=== PATIENT | male | born 1955 | race Caucasian/White ===

== ENCOUNTER 2022-05-04 11:25 | Outpatient (CLI) | payer MEDICARE ==
[2022-05-04 12:50] LABS: #Eosinphils 0.1 10x3/uL (0.0-0.5); #Monocytes 0.8 10x3/uL (0.0-1.1); #Neutrophils 7.1 10x3/uL (1.5-8.4); %Basophils 0.4 % (0.0-2.0); %Eosinophils 0.9 % (0.0-6.0); %Lymphocytes 22.8 % (18.0-47.0); %Monocytes 7.8 % (0.0-10.0); %Neutrophils 67.4 % (40.0-75.0); Hemoglobin 15.8 g/dL (13.5-17.5); Mean Corpuscular HGB CONC 33.1 g/dL (32.0-36.0); Mean Corpuscular Hemoglobin 31.9 pg (27.0-33.0); Mean Corpuscular Volume 96.4 fl (81.2-95.1); Mean Platelet Volume 11.8 fl (7.4-10.4); Platelet Count 218 10x3/uL (150-450); RBC Distribution Width 14.2 % (11.5-14.5); Red Blood Cell (RBC) Count 4.95 10x6/uL (4.32-5.72); White Blood Cell (WBC) Count 10.6 10x3/uL (3.5-10.5)
[2022-05-04 12:57] LABS: INR-International Normal Ratio 0.9; Prothrombin Time 10.3 sec (9.5-12.1)
[2022-05-04 13:00] LABS: Anion Gap 14 mmol/L (10-20); BUN (Urea Nitrogen) 17 mg/dL (8.4-25.7); Calc. Creatinine Clearance 0 mL/min (70-130); Calcium 9.2 mg/dL (7.8-10.44); Carbon Dioxide 26 mmol/L (23-31); Chloride 105 mmol/L (98-107); Estimated GFR 85; Glucose 111 mg/dL (80-115); Potassium 4.2 mmol/L (3.5-5.1); Sodium 141 mmol/L (136-145)
== END 2022-05-04 11:26 | disposition home or self-care (01) ==
LOC: LABBT 11:25
PROVIDERS: ATTEND Orthopaedic Surgery
DX: Z01.818 Encounter for other preprocedural examination (principal); M17.31 Unilateral post-traumatic osteoarthritis, right knee; Z20.822 Contact with and (suspected) exposure to COVID-19
CPT/HCPCS: 80048; 85025; 85610; 87081; 87811; 93005; 93010

== ENCOUNTER 2022-05-09 06:33 | Observation (INO) | payer MEDICARE ==
[2022-05-09] MEDS ORDERED: Tranexamic Acid 1,000 MG/10 ML VIAL ONE (06:55)
[2022-05-09] MEDS ORDERED: Sodium Chloride 0.9% 100 ML ONE (06:55)
[2022-05-09] MEDS ORDERED: VANCOMYCIN 2 GRAM/500 ML BAG 2 GM in Premix Bag 1 BAG IVPB SCH (07:00)
[2022-05-09] MEDS ORDERED: Midazolam HCl 2 mg/2 ml Vial ONE (07:47)
[2022-05-09] MEDS ORDERED: Lidocaine 1% MPF 2 ML VIAL ONE ×2 (07:47→09:24)
[2022-05-09] MEDS ORDERED: Fentanyl 100 MCG/2 ML VIAL ONE (07:47)
[2022-05-09] MEDS ORDERED: Fentanyl 100 MCG/2 ML VIAL IV PRN (08:16)
[2022-05-09] MEDS ORDERED: traMADol HCl 50 MG TAB PO PRN ×2 (08:30)
[2022-05-09] MEDS ORDERED: Promethazine HCl 25 MG/ML VIAL IM PRN ×3 (08:30→11:01)
[2022-05-09] MEDS ORDERED: Zolpidem Tartrate 5 MG TAB PO PRN ×2 (08:30→08:50)
[2022-05-09] MEDS ORDERED: Ropivacaine 0.2% 550 ML 550 ML NERVE BLCK SCH (08:30)
[2022-05-09] MEDS ORDERED: HYDROcodone/Acetaminophen 10/325 mg Tablet PO PRN (08:30)
[2022-05-09] MEDS ORDERED: Ondansetron PF 4 MG/2 ML Vial IVP PRN ×2 (08:30→08:50)
[2022-05-09] MEDS ORDERED: diphenhydrAMINE 25 MG CAP PO PRN (08:50)
[2022-05-09] MEDS ORDERED: Acetaminophen 325 MG TAB PO PRN (08:50)
[2022-05-09] MEDS ORDERED: guaiFENesin ER 600 MG TAB PO PRN (08:51)
[2022-05-09] MEDS ORDERED: Non-Formulary Item 1 EACH (Multivit-Min/Fa/Lycopen/Lutein [Centrum Silver Men Tablet] 1 E PO SCH (09:00)
[2022-05-09] MEDS ORDERED: Bupivacaine PF 0.5% 30 ML VIAL ONE (09:00)
[2022-05-09] MEDS ORDERED: fentaNYL Citrate/PF 100 MCG/2 ML SYRINGE ONE (09:10)
[2022-05-09] MEDS ORDERED: Ondansetron PF 4 MG/2 ML Vial ONE (09:24)
[2022-05-09] MEDS ORDERED: Dexamethasone 20 MG/5 ML VIAL ONE (09:24)
[2022-05-09] MEDS ORDERED: Ropivacaine 0.5% HCl/PF (150 MG/30 ML VIAL) ONE (09:24)
[2022-05-09] MEDS ORDERED: PROPOFOL 200 MG/20 ML VIAL ONE (09:24)
[2022-05-09] MEDS ORDERED: ePHEDrine 50 MG/ML VIAL ONE (09:24)
[2022-05-09] MEDS ORDERED: Promethazine HCl 25 MG/ML VIAL IVPB PRN (11:01)
[2022-05-09] MEDS ORDERED: Ondansetron HCl/PF 4 MG/2 ML Vial IVP PRN (11:01)
[2022-05-09] MEDS: Aspirin 81 mg Enteric Coated Tablet PO SCH ×2 (12:33→20:58)
[2022-05-09] MEDS: Cyanocobalamin (Vitamin B-12) 1,000 MCG TAB PO SCH (12:33)
[2022-05-09] MEDS: NIFEdipine XL 30 MG TAB PO SCH (12:33)
[2022-05-09] MEDS: Sodium Chloride 0.9% 1,000 ML IV SCH ×2 (12:34→18:34)
[2022-05-09 12:37] VITALS: BMI 36.1
[2022-05-09] MEDS: Ketorolac Tromethamine 30 MG/ML VIAL IVP SCH ×3 (12:57→23:39)
[2022-05-09] MEDS: CEFAZOLIN 2 GM in Sodium Chloride 0.9% 100 ML IVPB SCH ×2 (13:01→23:39)
[2022-05-09] MEDS: HYDROcodone/Acetaminophen 10/325 mg Tablet PO PRN (20:58)
[2022-05-09] MEDS ORDERED: Carvedilol 25 MG TAB PO SCH (21:00)
[2022-05-09] MEDS ORDERED: Atorvastatin Calcium 20 MG TAB PO SCH (21:00)
[2022-05-09] MEDS ORDERED: Tamsulosin HCl 0.4 MG CAP PO SCH (22:00)
[2022-05-10] MEDS: HYDROcodone/Acetaminophen 10/325 mg Tablet PO PRN ×2 (05:00→08:41)
[2022-05-10] MEDS: Ketorolac Tromethamine 30 MG/ML VIAL IVP SCH (05:00)
[2022-05-10] MEDS: Sodium Chloride 0.9% 1,000 ML IV SCH (05:03)
[2022-05-10 05:26] LABS: Mean Corpuscular HGB CONC 33.2 g/dL (32.0-36.0); Mean Platelet Volume 9.5 fL (7.4-10.4); Platelet Count 157 thou/uL (130-400); RBC Distribution Width 12.7 % (11.5-14.5); Red Blood Cell (RBC) Count 4.11 mill/uL (4.70-6.10); White Blood Cell (WBC) Count 19.8 thou/uL (4.8-10.8)
[2022-05-10 06:08] VITALS: TEMP 97.7
[2022-05-10] MEDS ORDERED: Ferrous Gluconate 324 MG TAB PO SCH (08:00)
[2022-05-10 08:17] VITALS: BP 145/78
[2022-05-10] MEDS: Aspirin 81 mg Enteric Coated Tablet PO SCH (08:29)
[2022-05-10] MEDS: NIFEdipine XL 30 MG TAB PO SCH (08:30)
[2022-05-10] MEDS: Cyanocobalamin (Vitamin B-12) 1,000 MCG TAB PO SCH (08:30)
[2022-05-10] MEDS ORDERED: Senokot S 8.6-50 MG TAB PO SCH (09:00)
[2022-05-10] MEDS ORDERED: Multivitamin W/ Minerals 1 TAB PO SCH (09:00)
[2022-05-10] MEDS ORDERED: Tamsulosin HCl 0.4 MG CAP PO SCH (21:00)
== END 2022-05-10 09:55 | disposition home or self-care (01) ==
LOC: SDC 06:33 → SJJU 12:18
PROVIDERS: ADMIT Orthopaedic Surgery; ATTEND Orthopaedic Surgery
PROC: 0SRC0J9 Replacement of Right Knee Joint with Synthetic Substitute, Cemented, Open Approach (ICD-10-PCS; principal; 2022-05-09)
PROC: 8E0YXBZ Computer Assisted Procedure of Lower Extremity (ICD-10-PCS; 2022-05-09)
DX: M17.31 Unilateral post-traumatic osteoarthritis, right knee (principal); I10 Essential (primary) hypertension; E78.5 Hyperlipidemia, unspecified; N40.1 Benign prostatic hyperplasia with lower urinary tract symptoms; E66.9 Obesity, unspecified; Z68.38 Body mass index [BMI] 38.0-38.9, adult; Z85.118 Personal history of other malignant neoplasm of bronchus and lung; Z85.528 Personal history of other malignant neoplasm of kidney; Z87.891 Personal history of nicotine dependence; Z92.21 Personal history of antineoplastic chemotherapy; Z79.899 Other long term (current) drug therapy; Z91.041 Radiographic dye allergy status; Z90.2 Acquired absence of lung [part of]; Z90.5 Acquired absence of kidney
CPT/HCPCS: 20985; 27447; 73560; 85027; 97110 ×2; 97116; 97530; A4306; C1713; C1776; J3370; 36415; J0690; J1100; J1885; J2250; J2405; J2704; J2795; J3010; J3490; S0020

== ENCOUNTER 2023-07-05 12:49 | Outpatient (CLI) | payer MEDICARE ==
[2023-07-05 16:07] LABS: Anion Gap 16 mmol/L (10-20); BUN (Urea Nitrogen) 23 mg/dL (8.4-25.7); Calc. Creatinine Clearance 0 mL/min (70-130); Calcium 9.4 mg/dL (7.8-10.44); Carbon Dioxide 24 mmol/L (23-31); Chloride 104 mmol/L (98-107); Estimated GFR 92; Glucose 85 mg/dL (80-115); Potassium 4.5 mmol/L (3.5-5.1); Sodium 139 mmol/L (136-145)
[2023-07-05 16:18] LABS: #Eosinphils 0.1 10x3/uL (0.0-0.5); #Monocytes 0.9 10x3/uL (0.0-1.1); #Neutrophils 6.3 10x3/uL (1.5-8.4); %Basophils 0.2 % (0.0-2.0); %Eosinophils 1.4 % (0.0-6.0); %Lymphocytes 25.2 % (18.0-47.0); %Monocytes 9.4 % (0.0-10.0); %Neutrophils 63.1 % (40.0-75.0); Hematocrit 46.6 % (38.8-50.0); Hemoglobin 15.7 g/dL (13.5-17.5); Mean Corpuscular HGB CONC 33.7 g/dL (32.0-36.0); Mean Corpuscular Hemoglobin 32.2 pg (27.0-33.0); Mean Corpuscular Volume 95.5 fl (81.2-95.1); Mean Platelet Volume 12.2 fl (7.4-10.4); Platelet Count 186 10x3/uL (150-450); RBC Distribution Width 14.6 % (11.5-14.5); Red Blood Cell (RBC) Count 4.88 10x6/uL (4.32-5.72); White Blood Cell (WBC) Count 9.9 10x3/uL (3.5-10.5)
[2023-07-05 17:04] LABS: INR-International Normal Ratio 0.9; Prothrombin Time 10.2 sec (9.5-12.1)
== END 2023-07-05 12:50 | disposition home or self-care (01) ==
LOC: LABBT 12:49
PROVIDERS: ATTEND Orthopaedic Surgery
DX: Z01.818 Encounter for other preprocedural examination (principal); M17.12 Unilateral primary osteoarthritis, left knee
CPT/HCPCS: 80048; 85025; 85610; 87081; 93005; 93010

== ENCOUNTER 2023-07-10 05:54 | Observation (INO) | payer MEDICARE ==
[2023-07-05 13:57] VITALS: BMI 38.0
[2023-07-10] MEDS ORDERED: Tranexamic Acid 1,000 MG/10 ML VIAL ONE (06:03)
[2023-07-10] MEDS ORDERED: Sodium Chloride 0.9% 100 ML ONE ×2 (06:04→07:03)
[2023-07-10] MEDS ORDERED: Vancomycin (BATCH) 2 GM in Premix 1 BAG IVPB SCH (06:15)
[2023-07-10] MEDS ORDERED: Bupivacaine PF 0.5% 30 ML VIAL ONE ×2 (06:20→06:39)
[2023-07-10] MEDS ORDERED: EPINEPHrine 1 MG/ML VIAL ONE (06:38)
[2023-07-10] MEDS ORDERED: Midazolam HCl 2 mg/2 ml Vial ONE (06:39)
[2023-07-10] MEDS ORDERED: fentaNYL 50 mcg/mL 1 mL Vial ONE (06:39)
[2023-07-10] MEDS ORDERED: CEFAZOLIN 2 GM VIAL ONE (07:03)
[2023-07-10] MEDS ORDERED: fentaNYL PF 100 MCG/2 ML SYRINGE ONE ×3 (07:07→09:35)
[2023-07-10] MEDS ORDERED: PROPOFOL 20 ML ONE ×2 (07:07→07:33)
[2023-07-10] MEDS ORDERED: Lidocaine 1% PF 5 ML VIAL ONE ×2 (07:07→07:15)
[2023-07-10] MEDS ORDERED: Dexamethasone 20 MG/5 ML VIAL ONE ×2 (07:07→07:15)
[2023-07-10] MEDS ORDERED: ePHEDrine Sulfate 50 MG/10 ML VIAL ONE ×2 (07:07→07:15)
[2023-07-10] MEDS ORDERED: Ondansetron PF 4 MG/2 ML Vial ONE ×2 (07:07→07:15)
[2023-07-10] MEDS ORDERED: PHENYLEPHRINE-NS 100 MCG/ML 10 ML SYRINGE ONE (07:07)
[2023-07-10] MEDS ORDERED: PROPOFOL 200 MG/20 ML VIAL ONE (07:15)
[2023-07-10] MEDS ORDERED: diphenhydrAMINE 25 MG CAP PO PRN (07:16)
[2023-07-10] MEDS ORDERED: Promethazine HCl 25 MG/ML VIAL IM PRN (07:16)
[2023-07-10] MEDS ORDERED: HYDROcodone/Acetaminophen 10/325 mg Tablet PO PRN (07:16)
[2023-07-10] MEDS ORDERED: Ondansetron PF 4 MG/2 ML Vial IVP PRN (07:16)
[2023-07-10] MEDS ORDERED: fentaNYL 50 mcg/mL 1 mL Vial SLOW IVP PRN ×2 (07:16)
[2023-07-10] MEDS ORDERED: Acetaminophen 325 MG TAB PO PRN (07:16)
[2023-07-10] MEDS ORDERED: Zolpidem Tartrate 5 MG TAB PO PRN (07:16)
[2023-07-10] MEDS ORDERED: guaiFENesin ER 600 MG TAB PO PRN (07:17)
[2023-07-10] MEDS ORDERED: Ropivacaine 0.2% 550 ML 550 ML NERVE BLCK SCH (07:45)
[2023-07-10] MEDS ORDERED: traMADol HCl 50 MG TAB PO PRN ×2 (07:45)
[2023-07-10] MEDS ORDERED: Multivitamin W/ Minerals 1 TAB PO SCH (09:00)
[2023-07-10] MEDS ORDERED: Aspirin 81 mg Enteric Coated Tablet PO SCH (09:00)
[2023-07-10] MEDS ORDERED: HYDROmorphone 0.5 MG/0.5 ML SYRINGE ONE ×2 (09:12→09:35)
[2023-07-10] MEDS ORDERED: hydrALAZINE 20 MG/ML VIAL ONE (09:34)
[2023-07-10] MEDS ORDERED: Non-Formulary Medication 1 EACH PO PRN (09:48)
[2023-07-10] MEDS ORDERED: Promethazine HCl 25 MG/ML VIAL IM/IV PRN (10:00)
[2023-07-10] MEDS ORDERED: HYDROmorphone 2 MG/ML VIAL SLOW IVP PRN (10:00)
[2023-07-10] MEDS ORDERED: Ondansetron HCl/PF 4 MG/2 ML Vial IVP PRN (10:00)
[2023-07-10] MEDS ORDERED: hydrALAZINE 20 MG/ML VIAL SLOW IVP SCH (10:00)
[2023-07-10] MEDS: Aspirin 81 mg Enteric Coated Tablet PO SCH ×2 (12:34→22:39)
[2023-07-10] MEDS: Cyanocobalamin (Vitamin B-12) 1,000 MCG TAB PO SCH (12:35)
[2023-07-10] MEDS: Senokot S 8.6-50 MG TAB PO SCH ×2 (12:35→22:40)
[2023-07-10] MEDS: Multivitamin W/ Minerals 1 TAB PO SCH (12:35)
[2023-07-10] MEDS: Ferrous Gluconate 324 MG TAB PO SCH ×2 (12:35→22:39)
[2023-07-10] MEDS: Sodium Chloride 0.9% 1,000 ML IV SCH ×2 (13:03→20:03)
[2023-07-10] MEDS: Ketorolac Tromethamine 30 MG/ML VIAL IVP SCH (13:28)
[2023-07-10] MEDS: CEFAZOLIN 2 GM in Sodium Chloride 0.9% 100 ML IVPB SCH ×2 (15:56→22:42)
[2023-07-10] MEDS ORDERED: Atorvastatin Calcium 20 MG TAB PO SCH (21:00)
[2023-07-10] MEDS ORDERED: Carvedilol 25 MG TAB PO SCH (21:00)
[2023-07-10] MEDS: HYDROcodone/Acetaminophen 10/325 mg Tablet PO PRN (22:38)
[2023-07-11] MEDS: Sodium Chloride 0.9% 1,000 ML IV SCH ×2 (04:10→04:11)
[2023-07-11] MEDS: HYDROcodone/Acetaminophen 10/325 mg Tablet PO PRN (05:11)
[2023-07-11 06:18] LABS: Hematocrit 39.4 % (42.0-52.0); Hemoglobin 13.1 g/dL (14.0-18.0); Mean Corpuscular HGB CONC 33.2 g/dL (32.0-36.0); Mean Corpuscular Volume 99.2 fl (78.0-98.0); Mean Platelet Volume 11.6 fL (7.4-10.4); Platelet Count 175 10x3/uL (130-400); RBC Distribution Width 14.9 % (11.5-14.5); Red Blood Cell (RBC) Count 3.97 mill/uL (4.70-6.10); White Blood Cell (WBC) Count 19.1 10x3/uL (4.8-10.8)
[2023-07-11 07:44] VITALS: BP 145/81; TEMP 97.8
[2023-07-11] MEDS: Multivitamin W/ Minerals 1 TAB PO SCH (08:53)
[2023-07-11] MEDS: Aspirin 81 mg Enteric Coated Tablet PO SCH (08:53)
[2023-07-11] MEDS: Senokot S 8.6-50 MG TAB PO SCH (08:53)
[2023-07-11] MEDS: Cyanocobalamin (Vitamin B-12) 1,000 MCG TAB PO SCH (08:53)
[2023-07-11] MEDS: Ferrous Gluconate 324 MG TAB PO SCH (08:53)
== END 2023-07-11 11:15 | disposition home or self-care (01) ==
LOC: SDC 05:54 → SURG B 12:00
PROVIDERS: ADMIT Orthopaedic Surgery; ATTEND Orthopaedic Surgery
PROC: 0SRD0JZ Replacement of Left Knee Joint with Synthetic Substitute, Open Approach (ICD-10-PCS; principal; 2023-07-10)
DX: M17.12 Unilateral primary osteoarthritis, left knee (principal); M51.36 Other intervertebral disc degeneration, lumbar region; I10 Essential (primary) hypertension; E78.5 Hyperlipidemia, unspecified; Z87.891 Personal history of nicotine dependence; Z91.041 Radiographic dye allergy status; Z79.899 Other long term (current) drug therapy
CPT/HCPCS: 27447; 73560; 85027; 97110 ×2; 97116 ×2; 97530; A4306; C1776; J0171; J0360; J3010; J3370; 36415; J1100; J1170; J2250; J2405; J2704; J2795; J3490; S0020

== ENCOUNTER 2024-08-29 08:14 | Outpatient (CLI) | payer MEDICARE | END 2024-08-29 08:15 | disposition home or self-care (01) | LOC: BICULT 08:14 | PROVIDERS: ATTEND Family Medicine | DX: R94.6 Abnormal results of thyroid function studies (principal); E04.2 Nontoxic multinodular goiter | CPT/HCPCS: 76536 ==

== ENCOUNTER → 2024-09-20 | Day surgery (SDC) | payer MEDICARE ==
[~2024-09-20] MED LIST: Sodium Bicarbonate 2.5 MEQ/5 ML SDV ONE
== END ==
LOC: ULT 12:15
PROVIDERS: ATTEND Family Medicine
PROC: 0G9H3ZX Drainage of Right Thyroid Gland Lobe, Percutaneous Approach, Diagnostic (ICD-10-PCS; principal; 2024-09-20)
DX: E04.1 Nontoxic single thyroid nodule (principal); Z91.041 Radiographic dye allergy status
CPT/HCPCS: 10005; 88173; 88305